=== PATIENT | female | born 1950 | race African-American/Black ===

== ENCOUNTER 2018-05-10 07:30 | Emergency (ER) | payer MEDICARE ==
[~2018-05-10] VITALS: Ht 167.6 cm; Wt 53.0 kg
[~2018-05-10 07:30] MED LIST: ACET-2178; AMLO10TA4; CLON0.1T14; DOCU100C57; HYDR-1348; HYDR100T31; LISI-604; NITR1OIN; OMEP20CA10
[2018-05-10 08:39] LABS: BASOPHILS % 0.2 % (0.0-2.0); EOSINOPHILS % 0.3 % (0.0-5.0); HEMATOCRIT. 41.7 % (36.0-48.0); HEMOGLOBIN. 13.9 g/dL (12.0-16.0); LYMPHOCYTES % 12.7 % (20.0-50.0); MEAN CORPUSCULAR HEMOGLOBIN 31.5 pg (28.0-32.0); MEAN CORPUSCULAR VOLUME 94.4 fL (81.0-99.0); MEAN PLATELET VOLUME 8.5 fl (7.4-10.4); NEUTROPHILS % 79.8 % (40.0-76.0); PLATELET 167 x1000/uL (130-400); RED BLOOD CELL COUNT 4.41 mill/uL (4.2-5.4); RED CELL DISTRIBUTION WIDTH 13.4 % (11.6-14.6)
[2018-05-10 08:45] LABS: CHLORIDE 97 mEq/L (98-107)
[2018-05-10 11:40] VITALS: BP 142/106
== END 2018-05-10 11:52 | disposition home or self-care (01) ==
LOC: ER 07:38
DX: R55 Syncope and collapse (principal); G89.29 Other chronic pain; M79.661 Pain in right lower leg; I10 Essential (primary) hypertension; F10.20 Alcohol dependence, uncomplicated; Y90.9 Presence of alcohol in blood, level not specified; I25.2 Old myocardial infarction
CPT/HCPCS: 36415; 80048; 85025; 93005; 99285

== ENCOUNTER 2018-05-22 19:17 | Emergency (ER) | payer SELFPAY ==
[~2018-05-22] VITALS: Ht 170.2 cm; Wt 59.0 kg
[2018-05-22] MEDS ORDERED: ACETAMINOPHEN 500MG TABLET PO ONE (20:45)
[2018-05-22 22:26] VITALS: BP 148/84
== END 2018-05-22 22:29 | disposition home or self-care (01) ==
LOC: ER 19:50
DX: S80.02XA Contusion of left knee, initial encounter (principal); I25.2 Old myocardial infarction; I10 Essential (primary) hypertension; F17.200 Nicotine dependence, unspecified, uncomplicated; Z79.01 Long term (current) use of anticoagulants; W01.0XXA Fall on same level from slipping, tripping and stumbling without subsequent striking against object, initial encounter; Y93.89 Activity, other specified; Y92.89 Other specified places as the place of occurrence of the external cause
CPT/HCPCS: 73560; 99283; 99284